=== PATIENT | female | born 1995 | race Caucasian/White ===

== ENCOUNTER 2017-06-03 11:57 | Emergency (ER) | payer SELFPAY ==
[2017-06-03 12:19] VITALS: BP 131/79
--- NOTE | 2017-06-03 12:22 | Emergency Department Report ---
Chief Complaint: Nausea/Vomiting/Diarrhea Stated Complaint: MORNING SICKNESS Time Seen by Provider: 06/03/17 12:20 - HPI History of Present Illness: PT c/o morning sickness and low back pain. 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 PT states she took a positive home test on 05-26-17. - ROS Review of Systems: + back pain - pelvic pain + n/v - Exam Vital Signs: Vital Signs 06/03/17 12:14 Temperature 98.4 F Pulse Rate 100 H Respiratory 20 Rate Blood Pressure 131/79 O2 Sat by Pulse 99 Oximetry Physical Exam: pt looks well, non toxic. pt's abd is soft and non tender MSE screening note: Focused history and physical exam performed. Due to findings the following was ordered: labs, us ED Disposition for MSE Condition: Stable
[2017-06-03 12:59] LABS: Bilirubin,Urine NEG (Negative); Blood,Urine SM (Negative); Ketones,Urine 80 mg/dL (Negative); Leukocyte Esterase,Urine MOD (Negative); Mucus,Urine FEW /HPF; Nitrite,Urine NEG (Negative); Protein,Urine <15 mg/dL mg/dL (Negative); Urobilinogen,Urine < 2.0 mg/dL (<2.0)
[2017-06-03 13:42] LABS: Basophils % (Auto) 0.6 % (0.0-1.8); Eosinophils % (Auto) 0.4 % (0.0-4.3); Hematocrit 35.9 % (30.3-42.9); Hemoglobin 12.5 gm/dl (10.1-14.3); Mean Corpuscular HGB Conc 35 % (30-34); Mean Corpuscular Hemoglobin 29 pg (28-32); Mean Corpuscular Volume 82 fl (79-97); Platelet Count 238 K/mm3 (140-440); Red Blood Count 4.38 M/mm3 (3.65-5.03); Red Cell Distribution Width 12.8 % (13.2-15.2); White Blood Count 10.5 K/mm3 (4.5-11.0)
[2017-06-03 14:00] LABS: Alanine Aminotransferase 12 units/L (7-56); Albumin 4.2 g/dL (3.9-5); Albumin/Globulin Ratio 1.2 %; Alkaline Phosphatase 58 units/L (35-129); Anion Gap 26 mmol/L; BUN/Creatinine Ratio 11.42; Blood Urea Nitrogen 8 mg/dL (7-17); Calcium 9.4 mg/dL (8.4-10.2); Carbon Dioxide 16 mmol/L (22-30); Chloride 96.6 mmol/L (98-107); Glucose 65 mg/dL (65-100); Potassium 4.2 mmol/L (3.6-5.0); Sodium 134 mmol/L (137-145); Total Protein 7.6 g/dL (6.3-8.2)
[2017-06-03] MEDS ORDERED: NACL 0.9% 1000 ML 1,000 ML IV ONE (14:02)
[2017-06-03] MEDS ORDERED: REGLAN IV ONE (14:04)
--- NOTE | 2017-06-03 15:54 | Ultrasound Report ---
Transvaginal and transabdominal OB ultrasound. History: Pelvic pain and hypotension. Findings: A serum hCG at the time of this study measures 190,366. A single intrauterine is identified with a crown-rump length of 1.1 cm corresponding to gestational age of 7 weeks one day. cardiac activity could not BE identified. There is no evidence of subchorionic hemorrhage. The left ovary is unremarkable. The right ovary is identified, but no adnexal mass is seen. The study is technically limited by the patient's body habitus. Impression: There is sonographic evidence of demise. The estimated gestational age is 7 weeks one day. Comment: These findings were given by telephone to the Eliel FREEDMAN at 3:50 PM on June 03, 2017.
== END 2017-06-03 18:29 | disposition home or self-care (01) ==
LOC: ED 11:57
DX: O26.891 Other specified pregnancy related conditions, first trimester (principal); R11.2 Nausea with vomiting, unspecified; M54.5 Low back pain; F31.9 Bipolar disorder, unspecified; Z3A.00 Weeks of gestation of pregnancy not specified
CPT/HCPCS: 36415; 76801; 76817; 80053; 81001; 84144; 84702; 85025; 86900; 86901; 87210; 87591; 96361; 96374; 99284; J2765; J7030